=== PATIENT | female | born 1980 | race Caucasian/White ===

== ENCOUNTER 2019-08-23 08:23 | Emergency (ER) | payer MEDICAID ==
[~2019-08-23] VITALS: Ht 162.6 cm; Wt 87.1 kg
[2019-08-23 08:29] VITALS: BP 129/88
--- NOTE | 2019-08-23 08:33 | NUR ---
Patient ambulated to bed 2. RN evaluating patient at bedside.
--- NOTE | 2019-08-23 08:33 | NUR ---
39/F BIB SELF C/O LEFT SHOULDER PAIN RADIATING TO LEFT ARM X3 DAYS, STATED WAS INJURIED AT WORK BY LIFTING. NO MED HX. PATIENT STATES PAIN OF 10/10 AT THIS TIME. PATIENT POSITIONED FOR COMFORT; HOB ELEVATED; BEDRAILS UP X1; BED DOWN. ER MD MADE AWARE OF PT STATUS.
--- NOTE | 2019-08-23 08:40 | NUR ---
X RAY AT BEDSIDE.
[2019-08-23] MEDS ORDERED: KETOROLAC 30 MG/ML VIAL IM ONE (08:45)
[2019-08-23 09:30] VITALS: BP 119/76
--- NOTE | 2019-08-23 09:30 | NUR ---
Patient discharged with v/s stable. Written and verbal after care instructions given and explained. Patient alert, oriented and verbalized understanding of instructions. Ambulatory with steady gait. All questions addressed prior to discharge. ID band removed. Patient advised to follow up with PMD. Rx of TRAMADOL & IBUPROFEN given. Patient educated on indication of medication including possible reaction and side effects. Opportunity to ask questions provided and answered.
== END 2019-08-23 09:30 | disposition home or self-care (01) ==
LOC: MED 08:23
DX: M75.92 Shoulder lesion, unspecified, left shoulder (principal)
CPT/HCPCS: 73030; 96372; 99283; J1885; Q0092